=== PATIENT | male | born 1965 | race Caucasian/White ===

== ENCOUNTER 2020-12-06 07:04 | Day surgery (SDC) | payer OTHER ==
[2020-12-02 08:56] LABS: COVID AG,FIA SOURCE NASOPHARYNGEAL
[~2020-12-06] VITALS: Ht 162.6 cm; Wt 78.2 kg
[~2020-12-06 07:04] MED LIST: ALBU8.5H8 IH; AMLO-257 PO; CHOL500013 PO; FAMO20 PO; FLUT16H NASAL; FLUT1BLS9 IH; HYDR25TA84 PO; MONT-35 PO; SODI650T33 PO; SODIUM CHLORIDE 0.9% 1,000 ML IV ONE; SODIUM CHLORIDE 0.9% 1,000 ML ONE; TAMS-13 PO
[2020-12-06] MEDS ORDERED: MIDAZOLAM HCL 2 MG/2 ML VIAL ONE (07:51)
[2020-12-06] MEDS ORDERED: DiphenhydrAMINE HCL 50 MG/ML VIAL ONE (07:52)
[2020-12-06] MEDS ORDERED: FentaNYL CITRATE PF 100 MCG/2 ML VIAL ONE (07:52)
[2020-12-06] MEDS ORDERED: NALOXONE HCL 0.4 MG/ML VIAL ONE (07:52)
[2020-12-06] MEDS ORDERED: EPINEPHrine 1:10,000 [1 MG/10 ML] SYRINGE ONE (07:52)
[2020-12-06] MEDS ORDERED: FLUMAZENIL 0.1 MG/ML 5 ML VIAL IVP ONE (07:52)
[2020-12-06] MEDS ORDERED: SODIUM TETRADECYL SULFATE 3% 60 MG/2 ML VIAL IVP ONE (07:52)
[2020-12-06] MEDS ORDERED: ATROPINE SULFATE 0.1 MG/ML 10 ML SYRINGE IVP ONE (07:53)
[2020-12-06] MEDS ORDERED: MethylPREDNISolone SOD SUCC 125 MG/2 ML VIAL IVP ONE (09:15)
[2020-12-06] MEDS ORDERED: MethylPREDNISolone SOD SUCC 125 MG/2 ML VIAL ONE (09:40)
[2020-12-06] MEDS ORDERED: LIDOCAINE 2% 30 ML JELLY ONE (17:06)
[2020-12-06] MEDS ORDERED: ALBUTEROL SULFATE 2.5 MG/0.5 ML NEB SOLUTION NEB ONE (17:06)
[2020-12-06] MEDS ORDERED: BENZOCAINE 20% 50 MCG/SPRAY 57 GM ONE (17:06)
[2020-12-06] MEDS ORDERED: OXYGEN THERAPY IH SCH (20:00)
== END 2020-12-06 10:35 | disposition home or self-care (01) ==
LOC: SURGERY 07:04
PROVIDERS: ATTEND Internal Medicine Critical Care Medicine
DX: J38.4 Edema of larynx (principal); B37.0 Candidal stomatitis; Z79.899 Other long term (current) drug therapy
CPT/HCPCS: 31623; 31624; 71045; 87015; 87070; 87101; 87205; 87206; 87220; 87426; 88108; 88184; 88185; 88312; C9803; J2250; J2930; J3010; J7030; A9575; J0171; J0461; J1200; J2310; J3490; J7613

== ENCOUNTER 2022-06-16 06:32 | Day surgery (SDC) | payer OTHER ==
[~2022-06-16] VITALS: Ht 157.5 cm; Wt 77.2 kg
[~2022-06-16 06:32] MED LIST changes: -FLUT16H NASAL; +FLUT16SP NASAL; -SODIUM CHLORIDE 0.9% 1,000 ML ONE
[2022-06-16 07:46] LABS: COVID AG,FIA SOURCE NASAL SWAB
[2022-06-16] MEDS ORDERED: MIDAZOLAM HCL 2 MG/2 ML VIAL ONE (07:59)
[2022-06-16] MEDS ORDERED: FentaNYL CITRATE PF 100 MCG/2 ML VIAL ONE (07:59)
[2022-06-16] MEDS ORDERED: BUDE10.26 IH (08:45)
[2022-06-16] MEDS ORDERED: DOXY-354 PO (08:45)
[2022-06-16] MEDS ORDERED: CARV6 PO (08:45)
[2022-06-16] MEDS ORDERED: LISI-893 PO (08:45)
[2022-06-16] MEDS ORDERED: MethylPREDNISolone SOD SUCC 125 MG/2 ML VIAL IVP ONE (10:00)
[2022-06-16] MEDS ORDERED: MethylPREDNISolone SOD SUCC 125 MG/2 ML VIAL ONE (10:08)
[2022-06-16] MEDS ORDERED: ALBUTEROL SULFATE 2.5 MG/0.5 ML NEB SOLUTION NEB ONE (16:07)
[2022-06-16] MEDS ORDERED: LIDOCAINE 2% 11 ML JELLY ONE (16:07)
[2022-06-16] MEDS ORDERED: LIDOCAINE 4% 50 ML SOLUTION ONE (16:07)
[2022-06-16] MEDS ORDERED: BENZOCAINE 20% 50 MCG/SPRAY 57 GM ONE (16:07)
[2022-06-16] MEDS ORDERED: OXYGEN THERAPY IH SCH (20:00)
== END 2022-06-16 11:40 | disposition home or self-care (01) ==
LOC: SURGERY 06:32
PROVIDERS: ATTEND Internal Medicine Critical Care Medicine
DX: J38.4 Edema of larynx (principal); B37.0 Candidal stomatitis; Z20.822 Contact with and (suspected) exposure to COVID-19; Z79.899 Other long term (current) drug therapy
CPT/HCPCS: 31623; 88112; 87101; 87220; 87070; 31624; 94640; 71045; 87015; 87426; 87206; J3010; J2250; J2930; Q9967; C9803; J7613; Z7610

== ENCOUNTER 2022-09-22 05:54 | Day surgery (SDC) | payer OTHER ==
[~2022-09-22] VITALS: Ht 160 cm; Wt 77.3 kg
[~2022-09-22 05:54] MED LIST changes: +BUDE10.26 IH; +CARV6 PO; +DOXY-354 PO; +LISI-893 PO; -SODIUM CHLORIDE 0.9% 1,000 ML IV ONE; +SODIUM CHLORIDE 0.9% 1,000 ML ONE
[2022-09-22] MEDS ORDERED: BENZOCAINE 20% 50 MCG/SPRAY 57 GM TP ONE (05:55)
[2022-09-22] MEDS ORDERED: LIDOCAINE 4% 50 ML SOLUTION TP ONE (05:55)
[2022-09-22] MEDS ORDERED: LIDOCAINE 2% 11 ML JELLY TP ONE (05:55)
[2022-09-22] MEDS ORDERED: ALBUTEROL SULFATE 2.5 MG/0.5 ML NEB SOLUTION NEB ONE (05:55)
[2022-09-22] MEDS ORDERED: SODIUM CHLORIDE 0.9% 1,000 ML IV ONE (07:00)
[2022-09-22 07:41] LABS: GLUCOMETER DEV NAME(LOC) SDS.; GLUCOSE,POINT OF CARE 95 MG/DL (70-110)
[2022-09-22] MEDS ORDERED: MIDAZOLAM HCL 2 MG/2 ML VIAL ONE (08:21)
[2022-09-22] MEDS ORDERED: FentaNYL CITRATE PF 100 MCG/2 ML VIAL ONE (08:21)
[2022-09-22] MEDS ORDERED: OMEP20CA12 PO (08:29)
[2022-09-22] MEDS ORDERED: AZIT-103 PO (08:29)
[2022-09-22] MEDS ORDERED: SUCR1TAB28 PO (08:29)
[2022-09-22] MEDS ORDERED: MethylPREDNISolone SOD SUCC 125 MG/2 ML VIAL ONE (09:12)
[2022-09-22] MEDS ORDERED: MethylPREDNISolone SOD SUCC 125 MG/2 ML VIAL IVP ONE (09:45)
== END 2022-09-22 11:50 | disposition home or self-care (01) ==
LOC: SURGERY 05:54
PROVIDERS: ATTEND Internal Medicine Critical Care Medicine
DX: R05.3 Chronic cough (principal); R91.1 Solitary pulmonary nodule; J98.09 Other diseases of bronchus, not elsewhere classified; J98.8 Other specified respiratory disorders; Z79.899 Other long term (current) drug therapy; Z88.6 Allergy status to analgesic agent; Z88.8 Allergy status to other drugs, medicaments and biological substances; F17.210 Nicotine dependence, cigarettes, uncomplicated; Z98.890 Other specified postprocedural states
CPT/HCPCS: 31623; 88112; 82962; 87206; 87101; 87220; 87070; 31624; 94640; 71045; 87015; J3010; J2250; J2930; Q9967; J7030; J7613; Z7610